=== PATIENT | female | born 1955 | race Caucasian/White ===

== ENCOUNTER → 2017-09-14 | Outpatient (CLI) | payer OTHER ==
--- NOTE | 2017-09-14 12:40 | XR ---
EXAMINATION TYPE: XR lumbosacral spine min 4V DATE OF EXAM: 09/14/2017 CLINICAL HISTORY: Back pain TECHNIQUE: Frontal, lateral, and oblique images of the lumbar spine are obtained. COMPARISON: None FINDINGS: There are 5 lumbar type vertebral bodies identified. The lumbar spine shows satisfactory alignment without evidence of acute fracture or dislocation. Vertebral body heights and disk space he ights are within normal limits. Mild facet arthropathy is seen at L3-L4, L4-L5 and L5-S1. Multilevel small anterior osteophytes are noted. Mild neural foraminal narrowing is seen on the left at L4-L5 an d minimal neural foraminal narrowing on the right at L4-5. Otherwise the oblique images appear within normal limits. The overlying soft tissue appears unremarkable. IMPRESSION: 1. No acute fracture or malalignment is seen in the lumbar spine. 2. Mild multilevel degenerative disc disease resulting in mild left and minimal right neural foramina l narrowing at L4-L5 radiographically.
== END ==
LOC: RADXRMAIN 11:37
PROVIDERS: ATTEND Family Medicine
DX: M51.36 Other intervertebral disc degeneration, lumbar region (principal); M99.73 Connective tissue and disc stenosis of intervertebral foramina of lumbar region
CPT/HCPCS: 72110

== ENCOUNTER 2018-07-04 09:56 | Inpatient (IN) | payer MEDICARE, OTHER ==
[2018-07-04] MEDS ORDERED: MORPHINE SULFATE 2 MG/ML SYRINGE IM STA (10:50)
--- NOTE | 2018-07-04 11:00 | ED ---
General Adult HPI - General Chief complaint: Fall Stated complaint: Fall Time Seen by Provider: 07/04/18 10:25 Source: patient, RN notes reviewed Mode of arrival: EMS Limitations: no limitations - History of Present Illness Initial comments: 62-year-old female with a past medical history of bone mets from primary breast cancer currently on hospice presents to the emergency department for a chief complaint of fall occurring earlier this morning. Patient was getting out of bed when she tripped and fell onto her right side. states she did not hit her head. Patient is denying any head or neck pain. Patient is complaining of right arm pain, mostly in the upper arm. She is also complaining of right leg pain mostly in the tib-fib area. Patient admits to mild hip pain in the right hip as well. Patient denies pain in the left leg. Patient does admit to pain in the left upper extremity, unable to localize the pain and states it hurts everywhere. Patient denies any back pain. Patient did receive 2 mg of morphine via EMS.Patient has no other complaints at this time including shortness of breath, chest pain, abdominal pain, nausea or vomiting, headache, or visual changes. - Related Data Home Medications Medication Instructions Recorded Confirmed MORPHINE ORAL ALBERT CONC 20mg/mL 15 mg PO Q2H PRN 07/04/18 07/04/18 [Roxanol Oral Soln Conc 20MG/ML] Prednisone (Unknown Dose) See Taper PO DAILY 07/04/18 07/04/18 Prochlorperazine [Compazine] 5 mg PO Q6HR PRN 07/04/18 07/04/18 Allergies Allergy/AdvReac Type Severity Reaction Status Date / Time No Known Allergies Allergy Verified 07/04/18 10:22 Review of Systems ROS Statement: Those systems with pertinent positive or pertinent negative responses have been documented in the HPI. ROS Other: All systems not noted in ROS Statement are negative. Past Medical History Past Medical History: Cancer History of Any Multi-Drug Resistant Organisms: None Reported Past Surgical History: No Surgical Hx Reported Past Psychological History: No Psychological Hx Reported Smoking Status: Former smoker Past Alcohol Use History: None Reported Past Drug Use History: Marijuana General Exam - General Exam Comments Initial Comments: Right upper extremity: patient unable to move the right arm, patient has tenderness throughout the generalized right upper extremity, no tenderness in the hand or wrist. Neurovascular intact in the right upper extremity, radial pulse 2+ and capillary refill less than 2 seconds Left upper extremity: Limited range of motion in the left upper extremity minimal tenderness noted to the left proximal humerus. Neurovascular intact capillary refill less than 2 seconds and radial pulse 2+. Sensation intact. No tenderness in the wrist or hand. Right lower extremity: Tenderness to the tib-fib area with mild edema, nonpitting. Patient has about 20 flexion of the right hip and extension to neutral position. Patient combining of pain when flexing the hip. Capillary refill less than 2 seconds and DP pulse 2+ in the right lower extremity sensation intact in the right lower extremity Left lower extremity: No tenderness noted throughout the left lower leg, no ecchymosis or contusions, no pain with movement of left hip or knee Limitations: no limitations General appearance: alert, in no apparent distress Head exam: Present: atraumatic (no hematomas or evidence of trauma), normocephalic, normal inspection Eye exam: Present: normal appearance, PERRL, EOMI. Absent: scleral icterus, conjunctival injection, periorbital swelling ENT exam: Present: normal exam, mucous membranes moist Neck exam: Present: normal inspection, full ROM. Absent: tenderness (no cervical spine tenderness), meningismus, lymphadenopathy Respiratory exam: Present: normal lung sounds bilaterally. Absent: respiratory distress, wheezes, rales, rhonchi, stridor Cardiovascular Exam: Present: regular rate, normal rhythm, normal heart sounds. Absent: systolic murmur, diastolic murmur, rubs, gallop, clicks GI/Abdominal exam: Present: soft, normal bowel sounds. Absent: distended, tenderness, guarding, rebound, rigid Back exam: Absent: tenderness (no thoracic or lumbar spine tenderness) Neurological exam: Present: alert, oriented X3, CN II-XII intact Psychiatric exam: Present: normal affect, normal mood Skin exam: Present: warm, intact Course Vital Signs 07/04/18 10:03 Temperature 98.2 F Pulse Rate 110 H Respiratory 20 Rate Blood Pressure 112/52 O2 Sat by Pulse 95 Oximetry Medical Decision Making - Medical Decision Making Extent 2-year-old female presents to the emergency department for a chief complaint of fall. Patient fell earlier today, did not hit her head. Denies any acute neck pain or back pain. Patient complains of bilateral arm pain as well as right tib-fib pain. Multiple x-rays were obtained which multiple fractures. There is oblique pathologic fracture of the proximal half of the humeral shaft with 2 cm of displacement, acute appearance. There is a subacute healing pathologic humeral fracture of the left humerus. Also, oblique pathologic fracture of the mid tibial shaft as well as mid fibular shaft of the right lower extremity. Splints were applied to right arm and leg. Patient was started on pain medications and did receive morphine in the ambulance prior to arrival, given more morphine when she was here but stated her pain was tolerable. Patient will be admitted for pain management and orthopedic consult. Dr. Suarez also saw the patient. - Lab Data Result diagrams: 07/04/18 14:31 07/04/18 14:31 Lab Results 07/04/18 07/04/18 Range/Units 14:31 14:31 WBC 10.8 H (3.8-10.6) k/uL RBC 2.54 L (3.80-5.40) m/uL Hgb 8.0 L (11.4-16.0) gm/dL Hct 24.2 L (34.0-46.0) % MCV 95.3 (80.0-100.0) fL MCH 31.6 (25.0-35.0) pg MCHC 33.1 (31.0-37.0) g/dL RDW 12.2 (11.5-15.5) % Plt Count 279 (150-450) k/uL Neutrophils % 86 % Lymphocytes % 7 % Monocytes % 6 % Eosinophils % 0 % Basophils % 0 % Neutrophils # 9.2 H (1.3-7.7) k/uL Lymphocytes # 0.7 L (1.0-4.8) k/uL Monocytes # 0.7 (0-1.0) k/uL Eosinophils # 0.0 (0-0.7) k/uL Basophils # 0.0 (0-0.2) k/uL Sodium 140 (137-145) mmol/L Potassium 3.4 L (3.5-5.1) mmol/L Chloride 107 (98-107) mmol/L Carbon Dioxide 28 (22-30) mmol/L Anion Gap 5 mmol/L BUN 25 H (7-17) mg/dL Creatinine 1.06 H (0.52-1.04) mg/dL Est GFR (CKD-EPI)AfAm 65 (>60 ml/min/1.73 sqM) Est GFR (CKD-EPI)NonAf 56 (>60 ml/min/1.73 sqM) Glucose 117 H (74-99) mg/dL Calcium 12.5 H (8.4-10.2) mg/dL Total Bilirubin 0.5 (0.2-1.3) mg/dL AST 55 H (14-36) U/L ALT 49 (9-52) U/L Alkaline Phosphatase 110 (38-126) U/L Total Protein 5.9 L (6.3-8.2) g/dL Albumin 3.3 L (3.5-5.0) g/dL Disposition Clinical Impression: Humeral fracture, Tibia/fibula fracture, Cancer Disposition: ADMITTED IP TO THIS HOSP Condition: Fair Is patient prescribed a controlled substance at d/c from ED?: No Referrals: Robby Hannon MD [REFERRING] - 1-2 days Time of Disposition: 15:12
[2018-07-04] MEDS ORDERED: SODIUM CHLORIDE 0.9% 500 ML 500 ML IV STA ×2 (11:29→13:50)
--- NOTE | 2018-07-04 13:13 | XR ---
EXAMINATION TYPE: XR humerus 2 views bilateral, XR forearm 2 views bilateral XR femur RT 2 views, XR tibia fibula RT 2 views DATE OF EXAM: 07/04/2018 COMPARISON: NONE HISTORY: 62-year-old female pain after fall FINDINGS: Right humerus and forearm: There is an oblique fracture of the proximal half of the humeral shaft with 2 cm of displacement. Mul tiple punched out lytic lesions are present throughout the visualized skeleton including the humerus and scapula. The forearm also shows multiple punched out lytic lesions with areas of cortical destru ction. Left humerus and forearm: There is a transverse mid shaft fracture with mild foreshortening and lateral apex angulation. Perios teal callus is present compatible with a subacute pathologic fracture. Areas of cortical destruction are present greater distally. Additional lytic lesion seen within the visualized left clavicle and le ft scapula. Additional lytic lesions are present throughout the left forearm. Right femur and tibia/fibula: Punched out lytic lesions within the visualized right hemipelvis and throughout the right femur. Ther e are lesions which involve significant portions of the diaphyseal cortex in the medial subtrochanter ic region and mid femoral shaft. Lytic lesion also seen within the patella lateral view. There is an oblique fracture of the mid tibial shaft with mild lateral apex angulation with multiple lytic lesions and areas of cortical destruction. Additional oblique, minimally offset fracture of the mid fibular shaft. IMPRESSION: Numerous punched-out lytic lesions with areas of cortical destruction within the bilateral upper extr emities and right lower extremity. Findings suggest multiple myeloma or metastatic disease. 1. Right humerus and forearm: Oblique pathologic fracture of the proximal half of the humeral shaft w ith 2 cm of displacement. Fracture has an acute appearance. 2. Left humerus and forearm: Subacute, healing pathologic mid humeral shaft fracture with mild latera l apex angulation. 3. Right femur and tibia/fibula: Oblique pathologic fracture mid tibial shaft with mild lateral apex angulation and additional minimally offset pathologic fracture of the mid fibular shaft. Multiple are as of cortical destruction throughout the femoral shaft places the patient at risk of additional immi nent pathologic fractures if weightbearing continues.
[2018-07-04] MEDS ORDERED: HYDROmorphone 0.5 MG/0.5 ML SYRINGE IVP PRN (13:58)
[2018-07-04] MEDS ORDERED: MORPHINE SULFATE 4 MG/ML SYRINGE IVP STA (13:58)
[2018-07-04] MEDS ORDERED: ACETAMINOPHEN TAB 325 MG TAB PO PRN (13:58)
[2018-07-04] MEDS ORDERED: HYDROmorphone 1 MG/ML 1 ML SYRINGE IVP PRN (13:58)
[2018-07-04] MEDS ORDERED: NALOXONE 0.4 MG/ML 1 ML VIAL IV PRN (13:58)
[2018-07-04 14:53] LABS: Basophils % (A) 0 %; Eosinophils % (A) 0 %; HCT 24.2 % (34.0-46.0); Lymphocytes # (A) 0.7 k/uL (1.0-4.8); Lymphocytes % (A) 7 %; MCH 31.6 pg (25.0-35.0); MCHC 33.1 g/dL (31.0-37.0); MCV 95.3 fL (80.0-100.0); Mean Platelet Volume 6.9; Monocytes # (A) 0.7 k/uL (0-1.0); Monocytes % (A) 6 %; Neutrophils # (A) 9.2 k/uL (1.3-7.7); Neutrophils % (A) 86 %; Platelet Count 279 k/uL (150-450); RBC 2.54 m/uL (3.80-5.40); RDW 12.2 % (11.5-15.5); WBC 10.8 k/uL (3.8-10.6)
[2018-07-04 15:03] LABS: Albumin 3.3 g/dL (3.5-5.0); Calcium 12.5 mg/dL (8.4-10.2); Potassium 3.4 mmol/L (3.5-5.1); Total Bilirubin 0.5 mg/dL (0.2-1.3); Total Protein 5.9 g/dL (6.3-8.2)
[2018-07-04 16:07] VITALS: BP 151/65; RESP 16; TEMP 97.7
[2018-07-04] MEDS ORDERED: PROCHLORPERAZINE 5 MG TAB PO PRN (16:34)
[2018-07-04] MEDS ORDERED: POLYETHYLENE GLYCOL 3350 17 GM POWD.PACK PO PRN (16:36)
[2018-07-04 16:44] VITALS: PULSE 111
[2018-07-04] MEDS: DOCUSATE 100 MG CAP PO SCH (17:59)
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
[2018-07-04] MEDS: MORPHINE SULFATE 2 MG/ML SYRINGE IVP PRN (23:42)
--- NOTE | 2018-07-05 00:10 | P.HPIM ---
History of Present Illness H&P Date: 07/04/18 Ms. Ken is a 62-year-old female with a past medical history of primary breast cancer with metastases to the bone with an hospice care coming to the emergency department after having a fall at home. The patient was trying to go to the bathroom with the help of a walker along with the assistance of her but her legs gave away and she fell. Her states that he was trying to help her but she felt. Has been also mentions that she heard a crack while he was helping her get up. Eventually patient complains of pain mostly on the right side of her body, which is the side that she fell on. Patient had x-rays of multiple joints, showing multiple fractures. Patient had splints placed on her right arm and right leg and given pain medication. She is admitted to the floor for further management with an orthopedic consult. When I examined the patient in her room, patient was confused. Most of the history is obtained from the patient's who is at the bedside. Patient' s daughter also joined us in the later part. Patient received Dilaudid in the ER and she seems to be drowsy and confused currently. Review of systems -could not be obtained as the patient is confused and sedated. Past Medical History Past Medical History: Cancer History of Any Multi-Drug Resistant Organisms: None Reported Past Surgical History: No Surgical Hx Reported Past Psychological History: No Psychological Hx Reported Smoking Status: Former smoker Past Alcohol Use History: None Reported Past Drug Use History: Marijuana - Past Family History Mother Additional Family Medical History / Comment(s): mom is 90 years old , hx heart disease Father Family Medical History: Cancer Medications and Allergies Home Medications Medication Instructions Recorded Confirmed Type MORPHINE ORAL ALBERT CONC 20mg/mL 15 mg PO Q2H PRN 07/04/18 07/04/18 History [Roxanol Oral Soln Conc 20MG/ML] Prednisone (Unknown Dose) See Taper PO DAILY 07/04/18 07/04/18 History Prochlorperazine [Compazine] 5 mg PO Q6HR PRN 07/04/18 07/04/18 History Allergies Allergy/AdvReac Type Severity Reaction Status Date / Time No Known Allergies Allergy Verified 07/04/18 10:22 Physical Exam Vitals: Vital Signs Temp Pulse Resp BP Pulse Ox 07/04/18 15:50 98.2 F 117 H 18 129/61 98 07/04/18 10:03 98.2 F 110 H 20 112/52 95 Intake and Output 07/04/18 07/04/18 07/04/18 06:59 14:59 22:59 Other: Weight 55.792 kg General examination: Patient is resting comfortably in the bed. She seems to be confused and drowsy as she just got her pain medication. HEENT -mild pallor. No icterus Neck -no JVD, no thyromegaly Cardiovascular -tachycardia. S1-S2 heard. Respiratory -poor respiratory effort. Bilateral breath sounds are positive. GI -abdomen is soft nontender. Bowel sounds positive. No organomegaly. Extremities -patient has a sling in the right upper and lower extremities. Neurological -drowsy and confused. Patient is moving all 4 extremities. Results CBC & Chem 7: 07/04/18 14:31 07/04/18 14:31 Labs: Abnormal Lab Results - Last 24 Hours (Table) 07/04/18 07/04/18 Range/Units 14:31 14:31 WBC 10.8 H (3.8-10.6) k/uL RBC 2.54 L (3.80-5.40) m/uL Hgb 8.0 L (11.4-16.0) gm/dL Hct 24.2 L (34.0-46.0) % Neutrophils # 9.2 H (1.3-7.7) k/uL Lymphocytes # 0.7 L (1.0-4.8) k/uL Potassium 3.4 L (3.5-5.1) mmol/L BUN 25 H (7-17) mg/dL Creatinine 1.06 H (0.52-1.04) mg/dL Glucose 117 H (74-99) mg/dL Calcium 12.5 H (8.4-10.2) mg/dL AST 55 H (14-36) U/L Total Protein 5.9 L (6.3-8.2) g/dL Albumin 3.3 L (3.5-5.0) g/dL Assessment and Plan Assessment: Multiple pathological fractures -status post fall at home Right humeral shaft fracture Subacute left humeral shaft fracture Right mid tibial shaft fracture Breast cancer with metastasis to bone Anemia secondary to malignancy Hypercalcemia Hypoalbuminemia Hypokalemia Plan: Patient admitted to the floor for pain management. Orthopedics have been consulted for multiple pathological fractures. As per discussion with family members the patient has been recently started on prednisone to increase her appetite. And they also said that the patient did not have a bowel movement for the past 4 days. We will start the patient on a bowel regimen. We will continue with IV morphine 2 mg every 4 hours for pain. Hospice has been consulted. The treatment plan was discussed in detail with the patient's and daughter at bedside. Overall prognosis is very poor.
[2018-07-05] MEDS: MORPHINE SULFATE 2 MG/ML SYRINGE IVP PRN ×6 (04:09→23:27)
[2018-07-05] MEDS: MORPHINE CONC SOLN 10mg/0.5mL ORAL SYRG PO PRN (07:50)
[2018-07-05] MEDS: DOCUSATE 100 MG CAP PO SCH (07:50)
[2018-07-05] MEDS ORDERED: SENNOSIDES 8.6 MG TAB PO SCH (09:00)
[2018-07-05] MEDS ORDERED: KETOROLAC 30 MG/ML 1 ML VIAL IVP STA (14:03)
--- NOTE | 2018-07-05 14:18 | P.PN ---
Subjective Progress Note Date: 07/05/18 Progress note being dictated for Dr. Santana. Interval history:Ms. Ken is a 62-year-old female with a past medical history of primary breast cancer with metastases to the bone with an hospice care coming to the emergency department after having a fall at home. The patient was trying to go to the bathroom with the help of a walker along with the assistance of her but her legs gave away and she fell. Her states that he was trying to help her but she felt. Has been also mentions that she heard a crack while he was helping her get up. Eventually patient complains of pain mostly on the right side of her body, which is the side that she fell on. Patient had x-rays of multiple joints, showing multiple fractures. Patient had splints placed on her right arm and right leg and given pain medication. She is admitted to the floor for further management with an orthopedic consult. When I examined the patient in her room, patient was confused. Most of the history is obtained from the patient's who is at the bedside. Patient' s daughter also joined us in the later part. Patient received Dilaudid in the ER and she seems to be drowsy and confused currently. Review of systems -could not be obtained as the patient is confused and sedated. 07/05/2018 evaluated by orthopedics with braces recommended. Patient and family states patient reports uncontrolled pain. Family states they do not feel they can take care of her at home. Family also requesting no more lab draws, no more blood pressure cuffs. shut off worker consulted regarding potential [facility] hospice house and other options. Objective - Vital Signs Vital signs: Vital Signs Temp 97.7 F 07/04/18 16:06 Pulse 111 H 07/04/18 16:06 Resp 16 07/05/18 08:00 BP 151/65 07/04/18 16:06 Pulse Ox 92 L 07/04/18 16:06 Intake & Output 07/04/18 07/05/18 07/05/18 18:59 06:59 18:59 Intake Total 1240 Output Total 1000 500 Balance -1000 740 Weight 55.792 kg Intake: Intake, IV Titration 160 Amount Sodium Chloride 0.9% 500 160 ml 500 ml @ 999 mls/hr IV .Q31M STA Rx#:[id number] Oral 1080 Output: Urine 1000 500 Uretheral (Fernandez) 1000 500 Other: Voiding Method Indwelling Catheter Indwelling Catheter Indwelling Catheter # Bowel Movements 2 - Exam GENERAL: Lying in the bed. Alert, Drowsy, alert and oriented 2 HEENT -mild pallor. No icterus Neck -no JVD, no thyromegaly Cardiovascular -tachycardia. S1-S2 heard. Respiratory -poor respiratory effort. Bilateral breath sounds are positive. GI -abdomen is soft nontender. Bowel sounds positive. No organomegaly. Extremities -patient has a sling in the right upper and lower extremities. Neurological -drowsy and confused. Patient is moving all 4 extremities. Unable to fully assess. - Labs CBC & Chem 7: 07/04/18 14:31 07/04/18 14:31 Labs: Abnormal Lab Results - Last 24 Hours (Table) 07/04/18 07/04/18 Range/Units 14:31 14:31 WBC 10.8 H (3.8-10.6) k/uL RBC 2.54 L (3.80-5.40) m/uL Hgb 8.0 L (11.4-16.0) gm/dL Hct 24.2 L (34.0-46.0) % Neutrophils # 9.2 H (1.3-7.7) k/uL Lymphocytes # 0.7 L (1.0-4.8) k/uL Potassium 3.4 L (3.5-5.1) mmol/L BUN 25 H (7-17) mg/dL Creatinine 1.06 H (0.52-1.04) mg/dL Glucose 117 H (74-99) mg/dL Calcium 12.5 H (8.4-10.2) mg/dL AST 55 H (14-36) U/L Total Protein 5.9 L (6.3-8.2) g/dL Albumin 3.3 L (3.5-5.0) g/dL Assessment and Plan Assessment: Multiple pathological fractures -status post fall at home Right humeral shaft fracture Subacute left humeral shaft fracture Right mid tibial shaft fracture Breast cancer with metastasis to bone Anemia secondary to malignancy Hypercalcemia Hypoalbuminemia Hypokalemia No code, no CPR, no intubation Hospice Plan: Continue on current medication regime ,monitoring and symptomatic treatment. Patient is comfort care/hospice as per family and patient requests. Pain management; Toradol and fentanyl patch added to med regime. Bowel regimen adjusted. shut off worker consulted regarding hospice arrangements, as family unable to care for patient at home at this time. Discharge planning in progress for tomorrow pending pain controlled. The impression and plan of care has been dictated as directed. : I performed a history and examination of this patient, discussed the same with the dictator. I agree with the dictator's note ,documented as a scribe. Any additional findings or plans will be noted.
[2018-07-05 14:28] VITALS: BMI 21.7
[2018-07-05] MEDS ORDERED: HEPARIN SODIUM,PORCINE 5,000 UNIT/ML 1 ML VIAL SQ SCH (16:00)
--- NOTE | 2018-07-05 19:03 | P.PN ---
Subjective Progress Note Date: 07/05/18 Principal diagnosis: Multiple pathologic fractures, including a right humeral shaft fracture, subacute left humeral shaft fracture, and a midtibial shaft/mid fibular shaft fractures. Status-post fall in the home Bone metastases from primary breast cancer This patient is a 62-year-old female with a past medical history of bone metastases from primary breast cancer currently on hospice that presented to the emergency department on 07/04/18 for a chief complaint of a fall that occurred this morning. Patient states that she was walking in the bathroom with the assistance of a walker and her , when she felt as if her legs gave out. Her states that he was right next to her when it occurred he is unsure of how she fell, he states it happened very quickly. Patient states she felt mostly onto her right side. Patient does not think she hit her head. When asked where she feels the most pain, the patient states that she feels pain all over her body and it is hard to localize certain areas. Her notes he thinks she may have broken the left humeral shaft at least a month ago , he remembers hearing a crack and pop while helping her about the house at that time. Orthopedics was consulted for multiple fractures sustained during her fall, including a right humeral shaft fracture, left humeral shaft fracture, and a right tibia/fibula fractures. Currently, patient seems confused. Daughter is bedside. Patient states she does have pain, although she is unable to locate where the pain is. Patient still has splints present on her right arm, and right leg. Braces are ordered, case management consulted. Per daughter, the patient does not follow with an oncologist, she underwent chemotherapy for a brief time four years ago, but has been undergoing alternative treatments since that time. Vital signs stable. Objective - Vital Signs Vital signs: Vital Signs Temp 97.7 F 07/04/18 16:06 Pulse 111 H 07/04/18 16:06 Resp 16 07/04/18 23:40 BP 151/65 07/04/18 16:06 Pulse Ox 92 L 07/04/18 16:06 Intake & Output 07/04/18 07/05/18 07/05/18 18:59 06:59 18:59 Intake Total 1240 Output Total 1000 500 Balance -1000 740 Weight 55.792 kg Intake: Intake, IV Titration 160 Amount Sodium Chloride 0.9% 500 160 ml 500 ml @ 999 mls/hr IV .Q31M STA Rx#:[id number] Oral 1080 Output: Urine 1000 500 Uretheral (Fernandez) 1000 500 Other: Voiding Method Indwelling Catheter Indwelling Catheter - Exam On examination, the patient is lying in bed, daughter is bedside. Indwelling catheter in place. She does not appear to be in acute distress. Patient appears confused. There is a posterior splint in place on the right upper extremity. Right hand is warm and well-perfused, with brisk capillary refill. Patient is able to wiggle her right fingers without difficulty. Sensation is intact to light touch of the hand. Left hand is warm and well-perfused, with brisk capillary refill. Patient is able to wiggle left fingers without difficulty. Sensation is intact to light touch of the hand. A posterior splint is in place on the right lower extremity. The right toes are warm and well-perfused, with brisk capillary refill. The patient is able to wiggle her right toes without difficulty. There is no swelling, ecchymosis, erythema of the left lower leg. There is no pain on palpation of the left lower leg. Left dorsalis pedis pulse +2, with brisk capillary refill of left great toe. - Labs CBC & Chem 7: 07/04/18 14:31 07/04/18 14:31 Labs: Abnormal Lab Results - Last 24 Hours (Table) 07/04/18 07/04/18 Range/Units 14:31 14:31 WBC 10.8 H (3.8-10.6) k/uL RBC 2.54 L (3.80-5.40) m/uL Hgb 8.0 L (11.4-16.0) gm/dL Hct 24.2 L (34.0-46.0) % Neutrophils # 9.2 H (1.3-7.7) k/uL Lymphocytes # 0.7 L (1.0-4.8) k/uL Potassium 3.4 L (3.5-5.1) mmol/L BUN 25 H (7-17) mg/dL Creatinine 1.06 H (0.52-1.04) mg/dL Glucose 117 H (74-99) mg/dL Calcium 12.5 H (8.4-10.2) mg/dL AST 55 H (14-36) U/L Total Protein 5.9 L (6.3-8.2) g/dL Albumin 3.3 L (3.5-5.0) g/dL Assessment and Plan Assessment: Multiple pathologic fractures, including a right humeral shaft fracture, subacute left humeral shaft fracture, and a midtibial shaft/mid fibular shaft fractures. Status-post fall in the home Bone metastases from primary breast cancer Plan: - Recommended patient be placed in bilateral Soto braces for her bilateral humeral shaft fractures. Also recommend an equalizer boot to the right lower extremity for the right tibia/fibula fractures. Order has been placed for braces , and case management has been consulted. Per case management note, patient is scheduled to be fit for braces at 4pm today. - Strict non-weightbearing on the right lower extremity. Recommend ice and elevation of the right lower extremity, as well as the bilateral upper extremities. - Discussed with the patient and her the possibility of referring patient to an orthopedic oncologist. At this time, they are not interested in pursuing this consultation. - Continue pain management, hospice has been consulted. - We will continue to follow this patient closely and make recommendations as needed. - Patient discussed with Dr. Goodwin.
[2018-07-05] MEDS: SENNOSIDES-DOCUSATE SODIUM 1 EACH TAB PO SCH (20:49)
[2018-07-05] MEDS: KETOROLAC 30 MG/ML 1 ML VIAL IVP SCH (22:50)
[2018-07-06] MEDS: MORPHINE CONC SOLN 10mg/0.5mL ORAL SYRG PO PRN (01:34)
[2018-07-06] MEDS: KETOROLAC 30 MG/ML 1 ML VIAL IVP SCH ×2 (04:32→10:09)
[2018-07-06] MEDS: MORPHINE SULFATE 2 MG/ML SYRINGE IVP PRN ×3 (05:15→14:10)
[2018-07-06] MEDS: DOCUSATE 100 MG CAP PO SCH (10:25)
[2018-07-06] MEDS: SENNOSIDES-DOCUSATE SODIUM 1 EACH TAB PO SCH (10:25)
== END 2018-07-06 14:35 | disposition hospice, inpatient (51) | DRG 543 ==
LOC: EC 09:56 → 3NMEDONC 14:00
PROVIDERS: ADMIT Internal Medicine; ATTEND Internal Medicine
DX: M84.521A Pathological fracture in neoplastic disease, right humerus, initial encounter for fracture (principal); C79.51 Secondary malignant neoplasm of bone; C50.919 Malignant neoplasm of unspecified site of unspecified female breast; D63.0 Anemia in neoplastic disease; E83.52 Hypercalcemia; E87.6 Hypokalemia; E88.09 Other disorders of plasma-protein metabolism, not elsewhere classified; M84.5 Pathological fracture in neoplastic disease; M84.561A Pathological fracture in neoplastic disease, right tibia, initial encounter for fracture; Z51.5 Encounter for palliative care; M84.522D Pathological fracture in neoplastic disease, left humerus, subsequent encounter for fracture with routine healing; Z87.891 Personal history of nicotine dependence; Z92.21 Personal history of antineoplastic chemotherapy; W06.XXXA Fall from bed, initial encounter; Y92.009 Unspecified place in unspecified non-institutional (private) residence as the place of occurrence of the external cause
CPT/HCPCS: 29105; 29505; 36415; 51702; 80053; 85025; 96361; 96372; 96374; 99285